=== PATIENT | male | born 2005 | race Caucasian/White ===

== ENCOUNTER 2024-10-28 09:26 | Day surgery (SDC) | payer OTHER ==
[2024-10-28] MEDS ORDERED: fentaNYL 50 MCG/ML SDV ONE (09:43)
[2024-10-28] MEDS ORDERED: Propofol 200 MG/20 ML SDV ONE (09:43)
[2024-10-28] MEDS ORDERED: Midazolam 1 MG/ML 2 ML SDV ONE (09:43)
[2024-10-28] MEDS: Lactated Ringers 1,000 ML IV SCH (10:21)
== END 2024-10-28 12:05 | disposition home or self-care (01) ==
LOC: JP.SDS 09:26
PROVIDERS: ATTEND Surgery
DX: R10.13 Epigastric pain (principal); K22.89 Other specified disease of esophagus
CPT/HCPCS: 00731; 43239; 88305; J2250; J2704; J3010; J7120